=== PATIENT | male | born 1955 | race Caucasian/White ===

== ENCOUNTER 2016-06-15 06:34 | Day surgery (SDC) | payer OTHER ==
[~2016-06-15] VITALS: Ht 170.2 cm; Wt 79.9 kg
[2016-06-15 07:16] VITALS: Ht 170.2 cm; Wt 79.9 kg
[2016-06-15 07:32] VITALS: BP 136/80; PULSE 66; RESP 18
[2016-06-15] MEDS ORDERED: MIDAZOLAM 1 MG/ML 2 ML INJ ONE ×2 (08:33)
[2016-06-15] MEDS ORDERED: FENTAnyl 50 MCG/ML VIAL ONE (08:33)
--- NOTE | 2016-06-15 08:49 | GILP ---
DATE OF PROCEDURE: PROCEDURE: Screening colonoscopy, rule out colon polyps. POSTOPERATIVE DIAGNOSES: Minimal external hemorrhoids. Rest of the colon appeared normal. DESCRIPTION OF PROCEDURE: After the informed written consent was obtained, the patient was asked to lie on the left lateral side, 3 mg Versed and 50 mcg of fentanyl was given as intravenous anesthesi a. When the patient became somnolent, the Olympus video colonoscope was introduced into the rectum and scope was advanced all the way to the cecum. Entire colon appeared perfectly normal. Terminal ileu m appeared normal. No polyps noted. No additional abnormalities detected. On the way out, retrofl exion was performed in the rectal area. No internal hemorrhoids were noted. On the way out, minima l external hemorrhoids were noted, and the procedure was terminated. PLAN: Recommend repeat colonoscopy in 10 years. Dictated By: DELBERT WHELAN/LUCIANO Conf#: [id number] DID#: [id number] CC: [facility];*EndCC*
[2016-06-15 08:55] VITALS: BP 124/83; PULSE 68; RESP 23
== END 2016-06-15 12:13 | disposition home or self-care (01) ==
LOC: GIL 06:34
PROVIDERS: ATTEND Internal Medicine Gastroenterology
DX: Z12.11 Encounter for screening for malignant neoplasm of colon (principal); K64.4 Residual hemorrhoidal skin tags
CPT/HCPCS: 45378; J2250; J3010